=== PATIENT | female | born 1990 | race Caucasian/White ===

== ENCOUNTER 2020-04-23 05:45 | Day surgery (SDC) | payer MEDICAID ==
[~2020-04-23] VITALS: Ht 160 cm; Wt 74.1 kg
[2020-04-23 09:36] LABS: BASOPHILS 0.2 % (0-2); EOSINOPHILS 1.4 % (0-7); HEMOGLOBIN 12.3 g/dL (12-16); IMMATURE GRANULOCYTES 0.2 % (0-5); MCH 30.9 pg (26.0-34.0); MCHC 33.2 g/dL (31.0-37.0); MEAN PLATELET VOLUME 10.2 fL (7.4-10.4); MONOCYTES 7.1 % (2-11); NEUTROPHILS 75.1 % (40-80); PLATELET COUNT 185 10x3/uL (130-400); RBC 3.98 10x6/uL (4.00-5.40); WBC 9.2 10x3/uL (4.8-10.8)
[2020-04-23 09:41] LABS: APTT 28.7 SECONDS (22.8-39.4); INR 0.99 (0.85-1.17)
[2020-04-23 13:08] VITALS: BP 126/59
--- NOTE | 2020-04-23 13:08 | NUR ---
RECEIVED PT VIA RR BED TO ROOM 1273-A PER RR STAFF, PT IS DROWSY WITH EYES CLOSED BUT RESPONDS TO LIGHT TACTILE STIMULATION AND THIS RN VOICE. VSS, TEMP 97.9 ORALLY. IV PATENT TO RUE WITHOUT S/SX INFILTRATION OR INFECTION, ASSESSMENT COMPLETED, PLAN OF CARE REVIEWED WITH PT AND PT SIGNIFICANT OTHER PRESENT IN ROOM. BED IN LOW POSITION, BED BRAKES LOCKED, SR UP X2, HOB ELEVATED 30 DEGREES, PT AND SIGNIFICANT OTHER VOICE UNDERSTANDING OF PLAN OF CARE, WILL CONTINUE TO MONITOR.
[2020-04-23 13:27] VITALS: BP 110/54
[2020-04-23 14:02] VITALS: BP 114/56; Ht 160 cm; Wt 74.1 kg
--- NOTE | 2020-04-23 14:38 | NUR ---
pt rating pain 5 1/2 on scale of 1-10, aching in quality, requests prn med, same provided. tolerating apple juice and sprite po without n/v. pt reports does have nausea usually with narcotics when taken, explained that pt received phenergan in rr so she should be fine, provided crackers with meds and rationale explained. pt states understanding of all information provided.
--- NOTE | 2020-04-23 14:45 | NUR ---
pt up oob, ambulatory in room, to br to void, voided 250ml to specipan without difficulty, ambulatory back to bed, and requests to go home. will notify md for orders.
[2020-04-23] MEDS ORDERED: PERCOCET 5-3251 TAB PO (15:01)
--- NOTE | 2020-04-23 15:32 | NUR ---
PT RATES PAIN A 3-4 OUT OF 10 0N NUMERIC PAIN SCALE, STATES MEETS HER EXPECTATIONS FOR PAIN RELIEF. REVIEWED DISCHARGE INSTRUCTIONS AND HANDOUTS PROVIDED: RE: ECTOPIC AND LAPAROSCOPIC POSTOPERATIVE HANDOUTS. CLINIC CARD GIVEN ALONG WITH RX FOR PERCOCET AND INSTRUCTIONS TO CALL CLINIC FRIDAY FOR APPOINTMENT 1 WEEK FOLLOWING SURGERY, QUESTIONS ANSWERED, STATES UNDERSTANDING OF ALL INSTRUCTIONS PROVIDED. OOB TO GET DRESSED WITH ASSIST OF SIGNIFICANT OTHER.
--- NOTE | 2020-04-23 15:40 | NUR ---
PT DISCHARGED TO HOME VIA WC TO PRIVATE AUTO IN CARE OF SIGNIFICANT OTHER. NAD NOTED. STABLE CONDITION.
== END 2020-04-23 15:40 | disposition home or self-care (01) ==
LOC: D.LD 05:45 → D.ER 05:45 → D.LDO 05:45 → EDSTATUS 09:28 → D.LD 09:28 → D.LDO 09:28 → EDSTATUS 11:12 → D.LDO 15:40 → D.LD 15:40
PROVIDERS: Family Medicine; ATTEND Obstetrics & Gynecology
DX: O00.201 Right ovarian pregnancy without intrauterine pregnancy (principal); Z3A.01 Less than 8 weeks gestation of pregnancy